=== PATIENT | female | born 1980 | race American Indian/Alaskan Native ===

== ENCOUNTER 2017-10-06 14:32 | Emergency (ER) | payer SELFPAY ==
[2017-10-06 15:17] LABS: Basophils % (Auto) 0.4 % (0.0-1.8); Hematocrit 31.5 % (30.3-42.9); Hemoglobin 10.2 gm/dl (10.1-14.3); Mean Corpuscular HGB Conc 32 % (30-34); Mean Corpuscular Hemoglobin 27 pg (28-32); Mean Corpuscular Volume 82 fl (79-97); Platelet Count 240 K/mm3 (140-440); Red Blood Count 3.85 M/mm3 (3.65-5.03); Red Cell Distribution Width 17.4 % (13.2-15.2); White Blood Count 7.2 K/mm3 (4.5-11.0)
[2017-10-06 15:20] LABS: Calcium 7.4 mg/dL (8.4-10.2); Chloride 101.3 mmol/L (98-107); Potassium 4.9 mmol/L (3.6-5.0)
[2017-10-06] MEDS ORDERED: CATAPRES PO ONE (15:31)
--- NOTE | 2017-10-06 16:41 | Emergency Department Report ---
HPI - General Chief Complaint: High BP Time Seen by Provider: 10/06/17 15:53 - HPI HPI: This is a 36 year-old female presents to the emergency department from the dialysis clinic with the complaint of very elevated blood pressure and therefore the inability to receive dialysis today. She does have a history of hypertension and end-stage renal disease on hemodialysis on Thursday , and Thursday. I spoke to the patient's lamp replacer, Dr. Ratliff, who says that she had a systolic blood pressure of about 240 and based on the protocol they were unable to dialyze her. She was given Coreg and clonidine prior to arrival. Her only complaint is some mild fatigue but she denies any chest pain, shortness of breath, swelling. She has a permacath in the right chest wall. ED Past Medical Hx - Past Medical History Hx Hypertension: Yes Hx Renal Disease: Yes - Surgical History Past Surgical History?: No - Social History Smoking Status: Never Smoker Substance Use Type: None ED Review of Systems ROS: Stated complaint: HYPERTENSION/RENAL DISEASE Other details as noted in HPI Comment: All other systems reviewed and negative Constitutional: denies: chills, fever Eyes: denies: eye pain, eye discharge, vision change ENT: denies: ear pain, throat pain Respiratory: denies: cough, shortness of breath, wheezing Cardiovascular: denies: chest pain, palpitations Gastrointestinal: denies: abdominal pain, nausea, diarrhea Genitourinary: denies: urgency, dysuria, discharge Musculoskeletal: denies: back pain, joint swelling, arthralgia Skin: denies: rash, lesions Neurological: denies: headache, weakness, paresthesias Physical Exam - Physical Exam Vital Signs: Vital Signs 10/06/17 10/06/17 10/06/17 14:33 15:18 15:20 Temperature 98.2 F Pulse Rate 76 76 Respiratory 20 22 19 Rate Blood Pressure 216/109 O2 Sat by Pulse 100 98 97 Oximetry 10/06/17 16:11 Temperature Pulse Rate 72 Respiratory Rate Blood Pressure 144/79 O2 Sat by Pulse Oximetry Physical Exam: GENERAL: The patient is well-developed well-nourished. HENT: Normocephalic. Atraumatic. Patient has moist mucous membranes. EYES: Extraocular motions are intact. Pupils equal reactive to light bilaterally. NECK: Supple. Trachea is midline. CHEST/LUNGS: Clear to auscultation. There is no respiratory distress noted. Permacath in the right chest wall. HEART/CARDIOVASCULAR: Regular. There is no tachycardia. There is no murmur. ABDOMEN: Abdomen is soft, nontender. Patient has normal bowel sounds. There is no abdominal distention. Morbidly obese habitus. SKIN: Skin is warm and dry. NEURO: The patient is awake, alert, and oriented. The patient is cooperative. The patient has no focal neurologic deficits. The patient has normal speech. MUSCULOSKELETAL: There is no tenderness or deformity. There is no limitation range of motion. There is no evidence of acute injury. ED Course Vital Signs 10/06/17 10/06/17 10/06/17 14:33 15:18 15:20 Temperature 98.2 F Pulse Rate 76 76 Respiratory 20 22 19 Rate Blood Pressure 216/109 O2 Sat by Pulse 100 98 97 Oximetry 10/06/17 16:11 Temperature Pulse Rate 72 Respiratory Rate Blood Pressure 144/79 O2 Sat by Pulse Oximetry ED Medical Decision Making - Lab Data Result diagrams: 10/06/17 14:50 10/06/17 14:50 - Medical Decision Making The patient's labs certainly shows the renal insufficiency but the patient has chronic kidney disease on hemodialysis. There is no hyperkalemia. The patient is asymptomatic. She has a little fatigued from the [place] but otherwise is easily arousable and appropriate, cranial nerves intact without any focal, motor or sensory deficits. Her blood pressures come down to a systolic of between 140 and 150. I spoke to the hospitalist about possible admission for dialysis. However he spoke to the patient's lamp replacer in between the 2 of them it was decided the patient will be discharged home and she would get dialysis tomorrow. The patient understands and agrees to the plan. Critical Care Time: No Critical care attestation.: If time is entered above; I have spent that time in minutes in the direct care of this critically ill patient, excluding procedure time. ED Disposition Clinical Impression: Asymptomatic hypertensive urgency, End stage renal disease on dialysis Disposition: DC-01 TO HOME OR SELFCARE Is pt being admited?: No Does the pt Need Aspirin: No Condition: Stable Instructions: Chronic Kidney Disease (ED), Hypertension (ED) Additional Instructions: Please contact your lamp replacer and your dialysis Center either tonight or early tomorrow to arrange dialysis. Try and stay away from foods that are high in salt and caffeinated products to help with your blood pressure. Keep a blood pressure log. Return to the emergency department with any development of chest pain, shortness of breath, inability to control your blood pressure, or with any acute distress.. Time of Disposition: 17:08
--- NOTE | 2017-10-06 17:08 | Event Note ---
Date: 10/06/17 Patient evaluated for Htn emergency BP came down in ED to 140/93.Patient comfortable Electrolytes normal. Discharge home Be compliant with meds F/u with Dr Ratliff tomorrow.
[2017-10-06 18:18] VITALS: BP 151/88
--- NOTE | 2017-10-06 18:59 | XRay Report ---
FINAL REPORT EXAM: XR CHEST 1V AP HISTORY: uncontrolled htn, due for dialysis TECHNIQUE: AP portable view of the chest PRIORS: None. FINDINGS: Lines, tubes, and devices: Double-lumen right jugular catheter terminates in the distal superior vena cava. Lungs and pleura: Trachea is normal in position. Lungs are clear of infiltrate, pleural effusion, vascular congestion, or pneumothorax. Cardiomediastinal silhouette: Cardiac silhouette is prominent in size given the AP projection. Other: Bony structures are intact. IMPRESSION: No acute cardiopulmonary process seen.
--- NOTE | 2017-10-07 09:45 | Consultation ---
History of Present Illness - Reason for Consult Consult date: 10/07/17 end stage renal disease, accelerated hypertension - History of Present Illness The patient is a 36 year-old AAF with medical history significant for Morbid Obesity, HTN, JUAREZ, CHF, Hypothyroid, Anemia and ESRD on hemodialysis (TTS) presented to the emergency department from the dialysis clinic with very high blood pressure. Her BP wasa round 250/140 at the hemodialysis unit inspite of Clonidine 0.3 mg and Coreg. She was unabile to receive dialysis due to above. Patient is not compliant with hemodialysis and meds at this time. She has been working about 16 hours a day with little sleep. Patient c/o feeling tired but denies any other symptoms. Past History Past Medical History: anemia, dialysis, ESRD, hypertension, hypothyroidism, other (JUAREZ, CHF) Medications and Allergies Allergies Allergy/AdvReac Type Severity Reaction Status Date / Time No Known Allergies Allergy Unverified 10/06/17 14:33 Review of Systems Constitutional: no weight loss, no weight gain, no fever, no chills, no anorexia , no weakness, no poor appetite Ears, nose, mouth and throat: no epistaxis Breasts: deferred Cardiovascular: edema, high blood pressure, leg edema, no chest pain, no orthopnea, no palpitations, no syncope, no lightheadedness, no shortness of breath Respiratory: no cough, no hemoptysis, no shortness of breath, no dyspnea on exertion Gastrointestinal: no abdominal pain, no nausea, no vomiting, no diarrhea, no melena Genitourinary Female: no dysuria, no hematuria Rectal: no bleeding Integumentary: no rash, no jaundice Neurological: no paralysis, no weakness, no vertigo, no headaches, no change in speech, no change in mentation, no confusion, no double vision, no loss of vision Endocrine: no weight change Hematologic/Lymphatic: no easy bleeding Exam - Vital Signs Vital signs: Vital Signs Temp Pulse Resp BP Pulse Ox 98.2 F 76 20 216/109 100 10/06/17 14:33 10/06/17 14:33 10/06/17 14:33 10/06/17 14:33 10/06/17 14:33 - General Appearance General appearance: well-developed, well-nourished, appears stated age, obese, other (no distress, right IJ tunnel catheter) EENT: ATNC, PERRL, mucous membranes moist, hearing intact, vision intact Neck: Present: neck supple, trachea midline Respiratory: Clear to Ascultation Heart: regular, S1S2, no murmurs Gastrointestinal: Present: normoactive bowel sounds, obese. Absent: tenderness , distended Integumentary: no rash, warm and dry Neurologic: no focal deficit, no asterixis, alert and oriented x3, CN 3-12 intact Musculoskeletal: Present: other (1+ edema of both LEs noted) Psychiatric: mood/affect appropriate, cooperative Results - Lab Results 10/06/17 14:50 10/06/17 14:50 Most recent lab results Calcium 7.4 mg/dL (8.4-10.2) L 10/06/17 14:50 Assessment and Plan 1. Uncontrolled Hypertension: BP is better now. 2. ESRD: Patient is due for hemodialysis today. No acute indication for hemodialysis. If admitted she can get hemodialysis in the hospital otherwise she can go to her outpatient hemodialysis unit for HD tomorrow. Patient understood the instructions. 3. Anemia. Compliance encouraged.
== END 2017-10-06 17:50 | disposition home or self-care (01) ==
LOC: ED 14:32
DX: I16.0 Hypertensive urgency (principal); I12.0 Hypertensive chronic kidney disease with stage 5 chronic kidney disease or end stage renal disease; N18.6 End stage renal disease; Z99.2 Dependence on renal dialysis
CPT/HCPCS: 36415; 71010; 80048; 83880; 84484; 84703; 85025